=== PATIENT | female | born 2000 | race Caucasian/White ===

== ENCOUNTER 2022-06-11 17:01 | Emergency (ER) | payer OTHER ==
[2022-06-11 17:19] VITALS: BMI 25.2
[2022-06-11] MEDS ORDERED: ACETAMINOPHEN 325 MG TABLET (FP) PO ONE (18:53)
[2022-06-11] MEDS ORDERED: ACETAMINOPHEN 325 MG TABLET (FP) ONE (19:15)
[2022-06-11] MEDS ORDERED: OSELTAMIVIR PHOSPHATE 75 MG CAPSULE PO ONE (20:30)
[2022-06-12 02:06] VITALS: BP 105/71; RESP 20; TEMP 98.1
[2022-06-12 02:20] VITALS: PULSE 85
== END 2022-06-11 22:45 | disposition home or self-care (01) ==
LOC: JER 17:01
DX: O98.513 Other viral diseases complicating pregnancy, third trimester (principal); J09.X2 Influenza due to identified novel influenza A virus with other respiratory manifestations; Z3A.31 31 weeks gestation of pregnancy
CPT/HCPCS: 0241U-QW; 99283-25

== ENCOUNTER 2022-07-13 14:24 | Emergency (ER) | payer OTHER ==
[2022-07-13 14:43] VITALS: BMI 24.2
[2022-07-13] MEDS ORDERED: ACETAMINOPHEN 500 MG TABLET (FP) PO ONE (15:27)
[2022-07-13] MEDS ORDERED: ACETAMINOPHEN 325 MG TABLET (FP) ONE (15:31)
[2022-07-13 17:34] LABS: HCG,QUALITATIVE URINE Positive
[2022-07-13 17:40] LABS: EPI CELLS 16 /uL (0-25.1); HYALINE CASTS 1 /uL (0-3.1); PH,URINE 8.5 (5.0-8.0); URINE APPEARANCE CLOUDY; URINE BACTERIA 95 /uL (0-1359); URINE BILIRUBIN NEGATIVE (NEGATIVE); URINE COLOR YELLOW; URINE GLUCOSE (UA) NEGATIVE (NEGATIVE); URINE KETONE NEGATIVE (NEGATIVE); URINE LEUK ESTERASE TRACE (NEGATIVE); URINE NITRITE NEGATIVE (NEGATIVE); URINE PROTEIN NEGATIVE (NEGATIVE); URINE RBC 9 /uL (0-23.9); URINE UROBILINOGEN 0.2 mg/dL (0.2-1.0); URINE WBC 10 /uL (0-25.8)
[2022-07-13 20:27] VITALS: BP 109/83; PULSE 83; RESP 17; TEMP 97.9
== END 2022-07-13 20:24 | disposition home or self-care (01) ==
LOC: JER 14:24
DX: O98.513 Other viral diseases complicating pregnancy, third trimester (principal); U07.1 COVID-19; R51.9 Headache, unspecified; Z3A.35 35 weeks gestation of pregnancy
CPT/HCPCS: 0241U-QW; 76815; 81003; 84703; 87086; 99284-25

== ENCOUNTER 2022-07-28 14:47 | Inpatient (IN) | payer OTHER ==
[2022-07-28] MEDS ORDERED: ELECTROLYTE-148 SOLN 1,000 ML IV SCH (15:30)
[2022-07-28] MEDS ORDERED: AMPICILLIN - 2 GM in SODIUM CHLORIDE 100 ML IVPB ONE (16:30)
[2022-07-28 16:31] VITALS: BMI 24.2
[2022-07-28 17:50] LABS: BASO % 0.8 % (0-2.0); HEMATOCRIT 33.4 % (32.4-45.2); HEMOGLOBIN 11.6 GM/dL (10.7-15.3); LYMPH % 25.1 % (8-40); MCHC 34.9 g/dl (32.0-36.0); MEAN CELL VOLUME 86.2 fl (80-96); MEAN PLT VOLUME 8.8 fl (7.5-11.1); MONO % 10.5 % (3.8-10.2); NEUT % 62.6 % (42.8-82.8); PLATELET COUNT 264 10^3/uL (134-434); RBC 3.88 M/mm3 (3.60-5.2); RDW 13.9 % (11.6-15.6); WHITE BLOOD COUNT 9.6 K/mm3 (4.0-10.0)
[2022-07-28 18:01] LABS: INR 0.9 (0.83-1.09); PROTHROMBIN TIME (PATIENT) 10.5 SEC (9.7-13.0)
[2022-07-28 18:09] LABS: BLOOD UREA NITROGEN 6.6 mg/dL (7-18); CALCIUM 8.8 mg/dL (8.5-10.1)
[2022-07-28 18:13] LABS: CREATININE 0.5 mg/dL (0.55-1.3)
[2022-07-28 18:53] LABS: SYPHILIS W/ RPR CONF NON-REACTIVE (NONREACTIVE)
[2022-07-28] MEDS ORDERED: ONDANSETRON 4 MG/2 ML VIAL IVPUSH PRN (18:59)
[2022-07-28] MEDS ORDERED: ACETAMINOPHEN 325 MG TABLET (FP) PO PRN ×2 (18:59→20:40)
[2022-07-28] MEDS ORDERED: CITRIC ACID/SODIUM CITRATE 30 ML UNIT-DOSE CUP PO ONE (19:00)
[2022-07-28] MEDS ORDERED: morphine SULFATE (PF) 1 MG/2 ML SYRINGE ONE (19:07)
[2022-07-28] MEDS ORDERED: SODIUM CHLORIDE 0.9% P/F 10 ML VIAL IJ ONE (19:08)
[2022-07-28] MEDS ORDERED: ceFAZolin SODIUM 1 GM VIAL ONE (19:08)
[2022-07-28] MEDS ORDERED: morphine SULFATE (PF) 1 MG/2 ML SYRINGE EP ONE (19:09)
[2022-07-28] MEDS ORDERED: PHENYLEPHRINE HCL 10 MG/1 ML SINGLE DOSE VIAL ONE (19:51)
[2022-07-28] MEDS ORDERED: OXYTOCIN 10 UNITS/ML VIAL ONE (19:58)
[2022-07-28] MEDS ORDERED: AMPICILLIN - 1 GM in SODIUM CHLORIDE 100 ML IVPB SCH (20:30)
[2022-07-28] MEDS ORDERED: ONDANSETRON 4 MG/2 ML VIAL ONE (20:36)
[2022-07-28] MEDS ORDERED: METHYLERGONOVINE MALEATE 0.2 MG/1 ML AMP IM PRN (20:40)
[2022-07-28] MEDS ORDERED: IBUPROFEN 600 MG TABLET (FP) PO PRN (20:40)
[2022-07-28] MEDS ORDERED: SIMETHICONE 80 MG TAB.CHEW (FP) PO PRN (20:40)
[2022-07-28] MEDS ORDERED: KETOROLAC TROMETHAMINE 30 MG/1 ML VIAL IM ONE (20:42)
[2022-07-28 20:44] LABS: CORD HCO3 26.7 mmHg (20-29); CORD PCO2 66.5 mmHg (30-78); CORD pH 7.222 (7.14-7.44)
[2022-07-28] MEDS ORDERED: IBUPROFEN 800 MG/8 ML IJ IVPB PRN (20:44)
[2022-07-28] MEDS ORDERED: ACETAMINOPHEN 1000 MG/100 ML BAG IVPB PRN (20:45)
[2022-07-29 07:21] LABS: BASO % 0.4 % (0-2.0); EOS % 0.2 % (0-4.5); HEMATOCRIT 33.9 % (32.4-45.2); HEMOGLOBIN 11.4 GM/dL (10.7-15.3); LYMPH % 12.6 % (8-40); MCH 29.3 pg (25.7-33.7); MCHC 33.8 g/dl (32.0-36.0); MEAN CELL VOLUME 86.7 fl (80-96); MEAN PLT VOLUME 8.8 fl (7.5-11.1); MONO % 6.8 % (3.8-10.2); PLATELET COUNT 235 10^3/uL (134-434); RBC 3.91 M/mm3 (3.60-5.2); WHITE BLOOD COUNT 13.7 K/mm3 (4.0-10.0)
[2022-07-29] MEDS: OXYTOCIN 20 UNITS in 0.9% NS 20 UNIT/1,000 ML INFUS.BAG IV SCH ×2 (08:33)
[2022-07-29] MEDS ORDERED: oxyCODONE HCL 5 MG TABLET PO PRN ×2 (08:40)
[2022-07-29 13:10] LABS: HIV INTERPRETATION NEGATIVE (NEGATIVE)
[2022-07-29] MEDS: IBUPROFEN 600 MG TABLET (FP) PO PRN (13:32)
[2022-07-29] MEDS ORDERED: BISACODYL 10 MG SUPP.RECT RC PRN (20:40)
[2022-07-30] MEDS: IBUPROFEN 600 MG TABLET (FP) PO PRN ×2 (08:51→19:29)
[2022-07-31] MEDS: IBUPROFEN 600 MG TABLET (FP) PO PRN ×2 (03:31→16:34)
[2022-07-31 08:33] LABS: BASO % 0.5 % (0-2.0); EOS % 1.4 % (0-4.5); HEMATOCRIT 33.5 % (32.4-45.2); HEMOGLOBIN 11.3 GM/dL (10.7-15.3); LYMPH % 23.8 % (8-40); MCH 29.2 pg (25.7-33.7); MCHC 33.6 g/dl (32.0-36.0); MEAN CELL VOLUME 86.6 fl (80-96); MEAN PLT VOLUME 8.4 fl (7.5-11.1); MONO % 7.6 % (3.8-10.2); NEUT % 66.7 % (42.8-82.8); PLATELET COUNT 280 10^3/uL (134-434); RBC 3.87 M/mm3 (3.60-5.2); RDW 14.1 % (11.6-15.6); WHITE BLOOD COUNT 9.6 K/mm3 (4.0-10.0)
[2022-08-01] MEDS: IBUPROFEN 600 MG TABLET (FP) PO PRN (01:57)
[2022-08-01 10:48] VITALS: BP 116/75; PULSE 75; RESP 16; TEMP 97.9
== END 2022-08-01 16:15 | disposition home or self-care (01) | DRG 540 ==
LOC: JLDR 14:47 → J3W 22:37
PROVIDERS: ADMIT Internal Medicine; ATTEND Internal Medicine
PROC: 10D00Z1 Extraction of Products of Conception, Low, Open Approach (ICD-10-PCS; principal; 2022-07-28)
DX: O36.5930 Maternal care for other known or suspected poor fetal growth, third trimester, not applicable or unspecified (principal); Z3A.37 37 weeks gestation of pregnancy; Z37.0 Single live birth
CPT/HCPCS: 36415; 36600; 80048; 82803; 85025; 85610; 85730; 86780; 86850; 86900; 86901; 87389; 88307-TC; C9803-CS; U0003; U0005